=== PATIENT | male | born 2000 ===

== ENCOUNTER 2024-12-20 15:35 | Emergency (ER) | payer SELFPAY ==
[2024-12-20 15:45] VITALS: BP 143/79; PULSE 101; RESP 16; TEMP 36.9; O2SAT 99
== END 2024-12-20 23:15 | disposition left against medical advice (07) ==
LOC: ANHED 21:00
DX: Z53.21 Procedure and treatment not carried out due to patient leaving prior to being seen by health care provider (principal)
CPT/HCPCS: 99199